=== PATIENT | female | born 1995 | race Caucasian/White ===

== ENCOUNTER 2017-03-13 19:20 | Inpatient (IN) | payer BC ==
[2017-03-13 19:47] VITALS: BMI 30.9
[2017-03-13] MEDS ORDERED: Ondansetron HCl/PF 4 MG/2 ML Vial IVP PRN (20:00)
[2017-03-13] MEDS ORDERED: LR / Pitocin 40 units/1000 ml 1,000 ML IV PRN (20:00)
[2017-03-13] MEDS ORDERED: Lidocaine 1% (PF) 30 ML VIAL SC PRN (20:00)
[2017-03-13] MEDS ORDERED: HYDROcodone/Acetaminophen 5/325 mg Tablet PO PRN ×2 (20:18)
[2017-03-13] MEDS ORDERED: Ibuprofen 800 MG TAB PO PRN (20:18)
[2017-03-13] MEDS ORDERED: Penicillin G Potassium 5 MILL.UNITS in Sodium Chloride 0.9% 100 ML IVPB SCH (20:30)
[2017-03-13 21:06] LABS: Hematocrit 33.1 % (36.0-47.0); Mean Platelet Volume 7.2 fL (7.4-10.4); Red Blood Cell (RBC) Count 4.15 mill/uL (4.20-5.40); White Blood Cell (WBC) Count 12.3 thou/uL (4.8-10.8)
[2017-03-13] MEDS: Dextrose 5%-Lactated Ringers 1,000 ML IV SCH (21:07)
[2017-03-13] MEDS: Lactated Ringer's 1,000 ML IV SCH (21:08)
[2017-03-14] MEDS: Penicillin G 2.5 MILL.units 2.5 MILL.UNITS in Premix Bag 1 BAG IVPB SCH ×5 (01:58→20:36)
[2017-03-14] MEDS: Dextrose 5%-Lactated Ringers 1,000 ML IV SCH ×2 (05:51→20:34)
[2017-03-14] MEDS ORDERED: LR 500 ML/Oxytocin 10 units 500 ML ONE (06:24)
[2017-03-14] MEDS ORDERED: FLU VACC QS2017-18 36 mo. & older 0.5 ML SYRINGE IM ONE (09:00)
[2017-03-14] MEDS: Lactated Ringer's 1,000 ML IV SCH ×3 (09:43→20:35)
[2017-03-14] MEDS ORDERED: Fentanyl 4 mcg/Marc 0.1% Cadd 100 ML ONE (10:49)
[2017-03-14] MEDS ORDERED: Lactated Ringer's 500 ML IV PRN (11:36)
[2017-03-14] MEDS ORDERED: diphenhydrAMINE HCl 50 MG/ML 1 ML VIAL IVP PRN (11:36)
[2017-03-14] MEDS ORDERED: Eucerin (Mineral Oil/Petrolatum,White) 30 gm Jar TOP PRN (11:36)
[2017-03-14] MEDS ORDERED: Acetaminophen 325 MG TAB PO PRN (11:36)
[2017-03-14] MEDS ORDERED: ePHEDrine/0.9% NaCl/PF SYRINGE 50 mg/10 ml SLOW IVP PRN (11:36)
[2017-03-14] MEDS ORDERED: Promethazine HCl 25 MG/ML VIAL IM PRN (11:36)
[2017-03-14] MEDS ORDERED: Ondansetron HCl/PF 4 MG/2 ML Vial IVP PRN (11:36)
[2017-03-14] MEDS ORDERED: Naloxone HCl 0.4 mg/ml Vial IVP PRN ×2 (11:36)
[2017-03-14] MEDS ORDERED: Communication Order-Pharmacy FS SCH (11:45)
[2017-03-14] MEDS ORDERED: Fentanyl 4mcg/Marcaine 0.1% Cassette 100 ML EPIDURAL SCH (11:45)
[2017-03-14] MEDS ORDERED: Preparation H Ointment 28 GM TUBE PR PRN (17:57)
[2017-03-14] MEDS ORDERED: Acetaminophen/Codeine 30-300mg Tablet PO PRN (17:57)
[2017-03-14] MEDS ORDERED: diphenhydrAMINE HCl 25 MG CAP PO PRN (17:57)
[2017-03-14] MEDS ORDERED: Varicella virus, LIVE 0.5 ML VIAL SC ONE (17:57)
[2017-03-14] MEDS ORDERED: Milk Of Magnesia 30 ML UDCUP PO PRN (17:57)
[2017-03-14] MEDS ORDERED: Bisacodyl 10 MG SUPP PR PRN (17:57)
[2017-03-14] MEDS ORDERED: Measles/Mumps/Rubella 10 MCG/0.5 ML VIAL SC ONE (17:57)
[2017-03-14] MEDS ORDERED: Benzocaine/Menthol 20-0.5% 60 ML CAN TOP PRN (17:57)
[2017-03-14] MEDS ORDERED: Adacel (T-DAP) 0.5 ML VIAL IM ONE (17:57)
[2017-03-14] MEDS ORDERED: LR / Pitocin 40 units/1000 ml 1,000 ML IV SCH (18:00)
[2017-03-14] MEDS: Ibuprofen 800 MG TAB PO SCH (18:26)
[2017-03-14] MEDS ORDERED: Bupivacaine/Epinephrine 0.25% 30 ML VIAL ONE (19:34)
[2017-03-14] MEDS: Docusate (Surfak) 240 MG CAP PO SCH (21:43)
[2017-03-15] MEDS: Lactated Ringer's 1,000 ML IV SCH ×3 (05:34→22:16)
[2017-03-15 05:49] LABS: Hematocrit 26.5 % (36.0-47.0); Mean Platelet Volume 7.5 fL (7.4-10.4); Red Blood Cell (RBC) Count 3.27 mill/uL (4.20-5.40); White Blood Cell (WBC) Count 11.2 thou/uL (4.8-10.8)
[2017-03-15] MEDS: Ibuprofen 800 MG TAB PO SCH ×3 (05:49→21:23)
[2017-03-15] MEDS: Prenatal Vitamin 1 TAB PO SCH (08:04)
[2017-03-15] MEDS: Docusate (Surfak) 240 MG CAP PO SCH ×2 (08:04→21:23)
[2017-03-15] MEDS: Ferrous Sulfate 325 MG TAB PO SCH ×2 (08:04→17:06)
[2017-03-15] MEDS: Dextrose 5%-Lactated Ringers 1,000 ML IV SCH ×2 (08:22→22:16)
[2017-03-15] MEDS: Acetaminophen/Codeine 30-300mg Tablet PO PRN (14:43)
[2017-03-15 21:59] VITALS: TEMP 98.2
[2017-03-16] MEDS: Ibuprofen 800 MG TAB PO SCH (05:55)
[2017-03-16 07:51] VITALS: BP 136/72
[2017-03-16] MEDS: Prenatal Vitamin 1 TAB PO SCH (08:38)
[2017-03-16] MEDS: Ferrous Sulfate 325 MG TAB PO SCH (08:38)
[2017-03-16] MEDS: Docusate (Surfak) 240 MG CAP PO SCH (08:38)
[2017-03-16] MEDS: Acetaminophen/Codeine 30-300mg Tablet PO PRN (10:55)
== END 2017-03-16 11:27 | disposition home or self-care (01) | DRG 775 ==
LOC: L&D/OP 19:20 → L&D 20:12 → 3SE 03-14 19:57
PROVIDERS: ADMIT Obstetrics & Gynecology; ATTEND Obstetrics & Gynecology
PROC: 10E0XZZ Delivery of Products of Conception, External Approach (ICD-10-PCS; principal; 2017-03-14)
PROC: 0W8NXZZ Division of Female Perineum, External Approach (ICD-10-PCS; 2017-03-14)
PROC: 3E0P3VZ Introduction of Hormone into Female Reproductive, Percutaneous Approach (ICD-10-PCS; 2017-03-14)
PROC: 4A0HXCZ Measurement of Products of Conception, Cardiac Rate, External Approach (ICD-10-PCS; 2017-03-14)
DX: O99.824 Streptococcus B carrier state complicating childbirth (principal); O76 Abnormality in fetal heart rate and rhythm complicating labor and delivery; O69.81X0 Labor and delivery complicated by cord around neck, without compression, not applicable or unspecified; Z37.0 Single live birth; Z3A.39 39 weeks gestation of pregnancy
CPT/HCPCS: 36415; 85027; 86780; 87340; J0595; J2001; J2540; J7050; J7120

== ENCOUNTER 2018-05-21 11:02 | Outpatient (CLI) | payer BC, OTHER ==
--- NOTE | 2018-05-21 13:17 | ULT ---
GALLBLADDER ULTRASOUND: History: 23-year-old female with history of right upper quadrant pain. FINDINGS: There is minimal course increased liver echogenicity, evidence for some fatty change. Multiple gallst ones are noted in the gallbladder without evidence for gallbladder wall thickening or pericholecystic fluid. Common bile duct is minimally dilated at 0.9 cm. No intrahepatic ductal dilatation. Visualize d pancreas and right kidney are unremarkable. IMPRESSION: Increased liver echogenicity. Cholelithiasis. Common bile duct is 0.9 cm. POS: [facility]
== END 2018-05-21 11:03 | disposition home or self-care (01) ==
LOC: SCSULT 11:02
PROVIDERS: ATTEND Family Medicine
DX: R10.11 Right upper quadrant pain (principal); K80.20 Calculus of gallbladder without cholecystitis without obstruction
CPT/HCPCS: 76705

== ENCOUNTER 2018-05-23 12:03 | Inpatient (IN) | payer BC, OTHER ==
[~2018-05-23 12:03] MED LIST: Dexamethasone 20 MG/5 ML VIAL ONE; Glycopyrrolate 0.2 MG/ML 5 ML SYRINGE ONE; Lidocaine 1% PF 5 ML VIAL ONE; Metoclopramide HCl 10 MG/2 ML VIAL ONE; PROPOFOL 200 MG/20 ML VIAL ONE
[2018-05-23 12:29] LABS: #Basophils 0.1 thou/uL (0.0-0.2); #Eosinphils 0.1 thou/uL (0.0-0.7); #Lymphocytes 1.9 thou/uL (1.20-3.40); #Monocytes 0.8 thou/uL (0.11-0.59); #Neutrophils 4.5 thou/uL (1.40-6.50); %Basophils 0.8 % (0.0-1.0); %Eosinophils 1.2 % (0.0-10.0); %Lymphocytes 26.1 % (21.0-51.0); %Monocytes 10.2 % (0.0-10.0); %Neutrophils 61.8 % (42.0-75.0); Hemoglobin 13.4 g/dL (12.0-16.0); Mean Corpuscular HGB CONC 31.8 g/dL (32.0-36.0); Mean Corpuscular Hemoglobin 25.8 pg (27.0-31.0); Mean Corpuscular Volume 81.1 fL (78.0-98.0); Mean Platelet Volume 7.4 fL (7.4-10.4); Platelet Count 398 thou/uL (130-400); RBC Distribution Width 13.3 % (11.5-14.5); Red Blood Cell (RBC) Count 5.17 mill/uL (4.20-5.40); White Blood Cell (WBC) Count 7.3 thou/uL (4.8-10.8)
[2018-05-23 12:40] LABS: BHCG - Serum Negative (NEGATIVE); Pregs Control Bar Appear? YES (CONTROL BAR)
[2018-05-23 12:41] LABS: Pregs Control Background? CLEAR/WHITE (CLR/WHITE)
[2018-05-23 12:52] LABS: ALT (SGPT) 212 U/L (8-55); AST (SGOT) 85 U/L (5-34); Albumin 4.2 g/dL (3.5-5.0); Alkaline Phosphatase 162 U/L (40-150); Anion Gap 16 mmol/L (10-20); BUN (Urea Nitrogen) 6 mg/dL (7.0-18.7); Bilirubin, Total 3.4 mg/dL (0.2-1.2); Calc. Creatinine Clearance 0 mL/min (70-130); Calcium 9.7 mg/dL (7.8-10.44); Carbon Dioxide 24 mmol/L (22-29); Chloride 102 mmol/L (98-107); Estimated GFR-MDRD Greater than 90; Glucose 98 mg/dL (70-105); Lipase 195 U/L (8-78); Potassium 3.7 mmol/L (3.5-5.1); Protein, Total 8.2 g/dL (6.0-8.3); Sodium 138 mmol/L (136-145)
[2018-05-23] MEDS ORDERED: Ondansetron PF 4 MG/2 ML Vial ONE ×2 (13:30→18:03)
[2018-05-23] MEDS ORDERED: Morphine 4 MG/ML VIAL ONE (13:42)
[2018-05-23 13:52] LABS: Bilirubin Large (Negative); Blood, Urine Negative (Negative); Clarity CLEAR (Clear); Glucose, Urine (Dipstick) Negative (Negative); Leukocyte Small (Negative); Nitrite Negative (Negative); Protein, Urine (Dipstick) Trace mg/dL (Neg-Trace)
[2018-05-23 13:53] LABS: Bacteria/HPF None Seen HPF (None Seen); Hyaline Casts/LPF 0-3 HYALINE CAST LPF (0-3 Hyaline); Pathc Cast-AUWi Flag 0.43 (0-2.49); Yeast-AUWi Flag 21.8 (0-25.0)
--- NOTE | 2018-05-23 14:03 | ULT ---
RIGHT UPPER QUADRANT GALLBLADDER ULTRASOUND: HISTORY: Pain. COMPARISON: Gallbladder ultrasound from two days prior. FINDINGS: The visualized portions of the pancreas are unremarkable. Diffuse increased hepatic echotexture. The liver measures 16.7 cm in length. There is cholelithiasis. No pericholecystic fluid or wall thi ckening. The common bile duct measures 7 mm. The right kidney measures 10.2 x 5.3 x 5.2 cm without mass, hydronephrosis, or abnormal calcification s. IMPRESSION: 1. Diffuse increased hepatic echotexture, suggesting steatosis. 2. Cholelithiasis without cholecystitis. 3. Continued dilatation of the common bile duct, measuring approximately 7 mm. MRCP may be beneficial in this patient, to evaluate for a distal obstructing stone. POS: [facility]
[2018-05-23] MEDS ORDERED: Pantoprazole 40 MG VIAL ONE (14:31)
[2018-05-23] MEDS ORDERED: Morphine 10 MG/ML VIAL ONE (17:27)
--- NOTE | 2018-05-23 17:58 | HP ---
HISTORY OF PRESENT ILLNESS: Nilsa Bojorquez is a 23-year-old female, who presents with one week of abdominal pain, right upper quadrant and nausea. On 05/21/2018, had an ultrasound and this was repeated today on ER presentation. On 05/21/2018, ultrasound revealed a 9 mm common bile duct, multiple gallstones. Today, when she presented for pain, ultrasound of the abdomen was repeated again and gallbladder ultrasound revealed multiple gallstones, continued dilatation of the bile duct. Bilirubin today is 3.4. AST and ALT 85 and 212. Alkaline phosphatase 162. Lipase is slightly elevated at 195. Renal function is normal. White count 7, hemoglobin 13. ALLERGIES: NONE. PAST SURGICAL HISTORY: None. PAST MEDICAL HISTORY: Noncontributory. SOCIAL HISTORY: Tobacco, none. Alcohol, rarely. 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 She has a daughter. She has a significant other she lives with, who is not present. REVIEW OF SYSTEMS: Noncontributory. FAMILY HISTORY: Noncontributory. PHYSICAL EXAMINATION: VITAL SIGNS: Blood pressure 120/70, heart rate 67, respiratory rate 18. HEAD, EARS, EYES, NOSE AND THROAT: Unremarkable. Sclerae nonicteric. SKIN: Nonjaundiced. LUNGS: Clear to auscultation. CARDIAC: Regular rate and rhythm without murmur or gallop. ABDOMEN: Soft, tenderness in the right upper quadrant with guarding. EXTREMITIES: Unremarkable. ASSESSMENT AND PLAN: Cholecystitis, cholelithiasis, choledocholithiasis. We would recommend ERCP. I have consult Dr. Burnette. He had explained the risks of infection, bleeding, reoperation, pancreatitis, and recommend laparoscopic video cholecystectomy. OR crew was not available for an ERCP tonight. The ERCP radiology technician has all gone home. There is nobody here to help with ERCP. Dr. Burnette has scheduled this Saturday morning. For this reason, we will plan laparoscopic cholecystectomy tonight and she will have an ERCP tomorrow. Job ID: [id number]
[2018-05-23 18:27] LABS: ALT (SGPT) 186 U/L (8-55); AST (SGOT) 82 U/L (5-34); Albumin 3.9 g/dL (3.5-5.0); Alkaline Phosphatase 156 U/L (40-150); Bilirubin, Direct 2.8 mg/dL (0.1-0.3); Bilirubin, Total 3.6 mg/dL (0.2-1.2); Protein, Total 7.5 g/dL (6.0-8.3)
[2018-05-23] MEDS ORDERED: Scopolamine 1.5 mg/72 hour Patch ONE (18:53)
[2018-05-23] MEDS ORDERED: Famotidine/PF 20 mg/2ml Vial ONE ×2 (18:54→20:24)
[2018-05-23 18:55] LABS: Lipase 8917 U/L (8-78)
[2018-05-23] MEDS ORDERED: Fentanyl 100 MCG/2 ML VIAL ONE ×3 (19:24→23:04)
[2018-05-23] MEDS ORDERED: Iothalamate Meglumine 60% 50 ML VIAL FS ONE ×2 (19:42→20:41)
[2018-05-23] MEDS ORDERED: Bupivacaine 0.25% HCL 30 ML VIAL ONE (19:42)
[2018-05-23] MEDS ORDERED: Meperidine HCl/PF 25 MG/ML VIAL ONE (20:24)
[2018-05-23] MEDS ORDERED: Bupivacaine HCl 0.5%/Epinephrine 1:200,000/PF 30 ml Vial ONE (20:25)
[2018-05-23] MEDS ORDERED: Indomethacin 50 MG SUPP ONE (20:41)
[2018-05-23] MEDS ORDERED: Morphine 4 MG/ML VIAL SLOW IVP PRN (22:04)
[2018-05-23] MEDS ORDERED: hydrALAZINE 20 MG/ML VIAL SLOW IVP PRN (22:04)
[2018-05-23] MEDS ORDERED: Mag-Al 1200 mg/1200 mg/30 ML UDCUP PO PRN (22:04)
--- NOTE | 2018-05-23 22:09 | RAD ---
OPERATIVE CHOLANGIOGRAM TWO VIEWS: 05/23/18 HISTORY: Intraoperative films. These show filling of a nondilated common bile duct. Very minimal emptying into the duodenum region i s seen. There is reflux into a normal caliber pancreatic duct. Due to limited contrast into the duode num, there is somewhat limited evaluation of the ampullary region. IMPRESSION: No retained stones identified. POS: [facility]
[2018-05-23] MEDS ORDERED: Lactated Ringer's 1,000 ML IV SCH ×2 (22:30→23:30)
--- NOTE | 2018-05-23 22:59 | RAD ---
ERCP: 05/23/18 HISTORY: Evaluation for ductal calculus. A series of three films are presented for interpretation. Two of these films have the scope in place which show filling of the common duct without any definite calculus. Ampullary region was not definit ively visualized on these images. There is one additional image without the scope in place. This show s what appears to be some contrast which is extrinsic to either the bowel or the common duct. I canno t exclude this is indicating some leak. The ampullary region is never optimally visualized on any of these images. IMPRESSION: Single film which shows contrast which could possibly be in the region of Toledo's pouch. I cannot exclude this indicating that there is some leakage of contrast. POS: [facility]
[2018-05-23] MEDS ORDERED: Promethazine HCl 25 MG/ML VIAL IM PRN (23:04)
[2018-05-23] MEDS ORDERED: Promethazine HCl 25 MG/ML VIAL SLOW IVP PRN (23:04)
[2018-05-23] MEDS ORDERED: Ondansetron HCl/PF 4 MG/2 ML Vial IVP PRN (23:04)
[2018-05-23] MEDS ORDERED: Acetaminophen 1,000 MG in Premix Bag 1 BAG IVPB SCH (23:59)
--- NOTE | 2018-05-24 00:22 | CON ---
DATE OF CONSULTATION: 05/23/2018 REASON FOR CONSULT: Possible choledocholithiasis. HISTORY OF PRESENT ILLNESS: Ms. Bojorquez is a 23-year-old female, who has had some intermittent pain in the upper abdomen, right upper quadrant, after eating for a few months now. She saw her primary physician earlier this week and had an ultrasound on Saturday that showed cholelithiasis and appointment was made for to see the general surgeon in the outpatient setting after the holidays, but her symptoms today worsened and her friend told her eyes looked yellow, so she called Dr. Ann's office and they recommended she come to the hospital here. PAST MEDICAL HISTORY: Notable for the fact that she has had a child before. She has had no abdominal surgeries. She was anemic during , but that has resolved. ALLERGIES: NONE KNOWN. MEDICATIONS: None. REVIEW OF SYSTEMS: Negative for weight loss. Her urine has been dark for about 3 or 4 days. She has had no fever, rigors, or chills. She has had no recent weight loss. Her pain was better, but is worse now. She has no shortness of breath or chest pain. PHYSICAL EXAMINATION: VITAL SIGNS: Blood pressure 124/82, pulse 87, respirations 16. She has been afebrile. LUNGS: Clear. HEART: Regular rate and rhythm. No rubs, gallops, or murmurs. ABDOMEN: Soft and nontender with no rebound or guarding. There is mild tenderness in the right upper quadrant. LABORATORY DATA: White count 7.3, hemoglobin 13.4, platelet count 398. Bilirubin 3.4, AST and ALT are 85 and 212, albumin 4.2, lipase 195. Serology not done. Urine is negative. ASSESSMENT: Acute cholecystitis. We will plan for operating room today. Possible choledocholithiasis. Mild elevation of lipase. RECOMMENDATIONS: The patient will need laparoscopic cholecystectomy. There is no symptoms of ascending cholangitis at this point in time. There is a 7 mm common duct. We will repeat LFTs and lipase presently and if patient ERCP tonight, otherwise would proceed tomorrow. Job ID: [id number]
[2018-05-24] MEDS: Morphine 4 MG/ML VIAL SLOW IVP PRN ×3 (00:29→13:11)
[2018-05-24] MEDS: Ketorolac Tromethamine 30 MG/ML VIAL IVP SCH ×3 (00:54→11:53)
[2018-05-24] MEDS: Lactated Ringer's 1,000 ML IV SCH ×4 (00:55→11:54)
[2018-05-24] MEDS: Acetaminophen 1,000 MG in Premix Bag 1 BAG IVPB SCH ×2 (03:09→08:08)
--- NOTE | 2018-05-24 03:13 | OP ---
DATE OF PROCEDURE: 05/23/2018 PREOPERATIVE DIAGNOSES: Chronic cholecystitis, acute cholecystitis, cholelithiasis, choledocholithiasis, and biliary pancreatitis. PROCEDURES PERFORMED: Laparoscopic video cholecystectomy, positive cholangiograms, markedly dilated common hepatic, common bile, left and right hepatic ducts without emptying into the duodenum. ANESTHESIA: General with local of 0.5% Marcaine with epinephrine 30 mL. Fluoroscopy used. DESCRIPTION OF PROCEDURE: The patient was taken to the operating room, where under general anesthesia, abdomen was prepared with ChloraPrep and draped in routine fashion. Local anesthetic of 0.5% Marcaine with epinephrine was infiltrated in the skin and subcutaneous tissue at about each port site. An umbilical incision was made. Pneumoperitoneum to 15 mmHg was obtained with a Veress needle, replaced with a 5 port and the laparoscope inserted. Liver appeared to be normal. Right subxiphoid incision was made and 11 port placed. A right subcostal incision was made, midclavicular, and anterior axillary line, the 5 port was placed. Gallbladder fundus was grasped and reflected cephalad. The infundibulum was grasped and reflected laterally. Cystic artery and cystic duct dissected free. Critical view obtained. A clip was placed on the gallbladder side of the cystic duct with opening made in the cystic duct. Cholangiocatheter was inserted and cholangiogram was obtained using fluoroscopy after glucagon administration. This revealed absence of flow of contrast into the duodenum with a markedly dilated common hepatic, common bile, and left and right hepatic ducts. Cholangiocatheter removed. Cystic duct and cystic artery were doubly clipped. Cystic artery and duct divided. Gallbladder dissected free, obtaining good hemostasis prior to division of the final peritoneal attachments. Gallbladder and contents removed, submitted to Pathology. Good hemostasis was assured. Irrigant and pneumoperitoneum evacuated, and all instruments were removed and the patient transferred to the ERCP suite for ERCP by Dr. Burnette. Job ID: [id number]
--- NOTE | 2018-05-24 03:32 | OP ---
DATE OF PROCEDURE: 05/23/2018 PROCEDURES PERFORMED: Endoscopic retrograde cholangiopancreatography, sphincterotomy, removal of common bile duct stone. PREPROCEDURE DIAGNOSES: 1. Gallstone pancreatitis. 2. Positive intraoperative cholangiogram. 3. Elevated liver enzymes. 4. Ascending cholangitis. POSTPROCEDURE DIAGNOSES: 1. Patulous common bile duct. 2. Cholangiogram reveals filling defect in distal duct consistent with stones. 3. Sphincterotomy was performed. The stent was removed with 15 mm balloon. Duct was then filled with a 12.5 mm balloon. No filling defects noted. Good drainage of contrast. 4. There was no cannulation of the pancreatic duct. ANESTHESIA: General endotracheal anesthesia. ANTIBIOTICS: 1. The patient received Levaquin and Rocephin. 2. The patient received two Indocin suppositories, preprocedure. 3. The patient was getting 200 mL an hour of IV fluid during procedure after 2 L boluses in the ER. RECOMMENDATIONS: 1. Continue IV fluids 250 mL an hour for the next liter and then 200 mL an hour. 2. Repeat labs in the morning. 3. Continue n.p.o. status for pain control. 4. Continue present medications. DESCRIPTION OF PROCEDURE: The patient and family were informed of the risks, benefits, possible complications of ERCP including pancreatitis, bleeding, perforation, bleeding, aspiration, injury to GI tract or potentially worsening of pancreatitis. Informed consent was obtained. The patient was brought to the endoscopy suite from the operating room, where she had had IOC performed. The endoscope was advanced when she was placed in a prone position. A tank car reconditioner film was obtained showing contrast remaining in the common bile duct with no drainage from the IOC. The side-viewing duodenoscope was advanced through the esophagus, stomach, and the second portion of the duodenum. There was quite a bit of food material in the stomach that was suctioned with best of our ability to prevent aspiration on extubation. Anesthesia was informed. The ampulla was brought into view. Free cannulation was obtained of the ampulla and a guidewire was advanced up to confirm position in the common bile duct. At this time, cholangiogram was performed showing some filling defects in the distal duct. A sphincterotomy was performed over the guidewire. A 15 mm balloon was then advanced up into the bile duct and inflated nodular hard yellow stone passed from the bile duct. The 12 mm balloon was then advanced up into the bile duct and the duct was swept three times. There was little bit of debris removed and occlusion cholangiogram was performed showing no further filling defects. After sweeping the duct, good drainage of contrast both endoscopically and radiographically. The scope was removed. The patient remained in sinus rhythm with good blood pressures throughout the procedure. She is extubated in the upright position and brought to recovery room in stable condition. Job ID: [id number]
[2018-05-24 05:41] VITALS: BMI 37.5
[2018-05-24 06:46] LABS: #Monocytes 0.5 thou/uL (0.11-0.59); %Basophils 0.2 % (0.0-1.0); %Eosinophils 0.2 % (0.0-10.0); %Lymphocytes 9.7 % (21.0-51.0); %Monocytes 5.1 % (0.0-10.0); %Neutrophils 84.8 % (42.0-75.0); Hemoglobin 11.3 g/dL (12.0-16.0); Mean Corpuscular Hemoglobin 25.3 pg (27.0-31.0); Mean Corpuscular Volume 81.7 fL (78.0-98.0); Mean Platelet Volume 7.5 fL (7.4-10.4); Platelet Count 307 thou/uL (130-400); RBC Distribution Width 13.4 % (11.5-14.5); Red Blood Cell (RBC) Count 4.47 mill/uL (4.20-5.40); White Blood Cell (WBC) Count 10.6 thou/uL (4.8-10.8)
[2018-05-24 07:08] LABS: ALT (SGPT) 182 U/L (8-55); AST (SGOT) 113 U/L (5-34); Albumin 3.4 g/dL (3.5-5.0); Alkaline Phosphatase 132 U/L (40-150); Anion Gap 13 mmol/L (10-20); BUN (Urea Nitrogen) 5 mg/dL (7.0-18.7); Bilirubin, Total 2.4 mg/dL (0.2-1.2); Calc. Creatinine Clearance 209 mL/min (70-130); Calcium 8.8 mg/dL (7.8-10.44); Carbon Dioxide 21 mmol/L (22-29); Chloride 106 mmol/L (98-107); Estimated GFR-MDRD Greater than 90; Globulin 3.2 g/dL (2.4-3.5); Glucose 128 mg/dL (70-105); Protein, Total 6.6 g/dL (6.0-8.3); Sodium 136 mmol/L (136-145)
[2018-05-24 07:21] LABS: Lipase 4958 U/L (8-78)
[2018-05-24] MEDS ORDERED: Pantoprazole 40 MG VIAL IVP SCH (09:00)
[2018-05-24] MEDS ORDERED: Lactated Ringer's 1,000 ML IV SCH (11:57)
--- NOTE | 2018-05-24 13:00 | PRG ---
DATE OF SERVICE: 05/24/2018 SUBJECTIVE: Ms. Bojorquez states she has different pain today mainly in her trocar sites from her cholecystectomy. Her upper abdominal pain has resolved. She has been tolerating drinking water. She has voided. She has been up walking. OBJECTIVE: VITAL SIGNS: Temperature 97.6, pulse 97, and blood pressure 144/85. LUNGS: Clear. ABDOMEN: Soft. Trocar sites has slight bruising, but there is no evidence of hematoma. They are nontender. There is no erythema. There is no drainage. EXTREMITIES: No edema. LABORATORY DATA: White count 10.6, hemoglobin 11.3, and platelet count 307. Sodium 136, potassium 4, BUN and creatinine are 5 and 0.65, glucose 128. Bilirubin is down to 2.4 from 3.6, AST, ALT are 113 and 182. Lipase is down to 4958 from 8917. ASSESSMENT: 1. Biliary pancreatitis, resolving with no signs of end-organ damage or systemic inflammatory response syndrome. 2. Choledocholithiasis, resolved after endoscopic retrograde cholangiopancreatography and removal of common bile duct stone. 3. Cholecystitis, status post cholecystectomy. RECOMMENDATIONS: Advance diet to full liquids. Repeat lipase in the morning. We would anticipate discharge tomorrow. We will decrease IV fluids. Job ID: [id number]
[2018-05-24] MEDS: Ondansetron PF 4 MG/2 ML Vial IVP PRN ×2 (13:16→19:50)
[2018-05-24] MEDS ORDERED: Ibuprofen 600 MG TAB PO PRN (14:26)
[2018-05-24] MEDS ORDERED: traMADol HCl 50 MG TAB PO PRN ×2 (14:26)
[2018-05-24] MEDS ORDERED: Acetaminophen 500 MG TAB PO PRN (14:26)
--- NOTE | 2018-05-24 16:28 | PRG ---
DATE OF SERVICE: 05/24/2018 SUBJECTIVE: Ms. Bojorquez is doing well today. She is having postoperative pain. She has not had any nausea or vomiting. She has tolerated full liquids that Dr. Burnette has initiated. Last night, she had ERCP with stone extraction. OBJECTIVE: VITAL SIGNS: Temperature 97.5, pulse 101, and blood pressure 138/90. LUNGS: Clear to auscultation. CARDIAC: Regular rate and rhythm without murmur or gallop. ABDOMEN: Soft. Mild tenderness as expected postoperatively. She does not have tenderness consistent with pancreatitis. LABORATORY DATA: This morning, her white count is 10 and hemoglobin 11.3. Sodium 136, potassium 4.0, BUN and creatinine 5 and 0.65. Bilirubin is decreased to 2.4 from 3.6 yesterday and her lipase is slightly improved to 4958, down from 8917 yesterday. ASSESSMENT AND PLAN: Resolving pancreatitis. Expect her to be able to be discharged home today. We will decrease her IV fluids and advance her diet as tolerated. Job ID: [id number]
[2018-05-24 20:17] VITALS: BP 132/86; TEMP 98.4
[2018-05-24] MEDS ORDERED: Enoxaparin Sodium 40 MG/0.4 ML SYRINGE SC SCH (21:00)
--- NOTE | 2018-05-25 02:54 | DIS ---
DATE OF ADMISSION: 05/23/2018 DATE OF DISCHARGE: 05/24/2018 DISCHARGE DIAGNOSES: 1. Biliary pancreatitis. 2. Choledocholithiasis. 3. Cholelithiasis. PROCEDURES: Ultrasound of the gallbladder, laparoscopic cholecystectomy, positive cholangiograms, endoscopic retrograde cholangiopancreatography, sphincterotomy, and stone extraction. HISTORY: A 23-year-old female with biliary symptoms, presented to the emergency room with dilated bile duct and now an abnormal liver function test. Initially, the lipase was 100. Plan was for laparoscopic cholecystectomy and cholangiograms as her bile duct was dilated. As her liver function tests were abnormal, initial plan was for ERCP followed by laparoscopic cholecystectomy. OR crew for ERCP was not available, thus decision was made to proceed with laparoscopic cholecystectomy, cholangiograms as her lipase had increased. The patient underwent the above procedure and cholangiograms were positive for dilated bile duct without emptying the duodenum despite glucagon administration intraoperatively and she was taken to endoscopy suite on the same anesthesia for ERCP, sphincterotomy, and stone extraction. Postoperatively, she convalesced, tolerated diet. She was sent home with [id number] Tylenol, ibuprofen, and tramadol p.r.n. pain. FOLLOWUP: Follow up in my office in 2 to 3 weeks. DIET: As tolerated. ACTIVITY: As tolerated. Job ID: [id number]
[2018-05-25] MEDS ORDERED: Polyethylene Glycol 3350 17 GM Packet PO SCH (09:00)
== END 2018-05-24 20:17 | disposition home or self-care (01) | DRG 417 ==
LOC: ERS 12:03 → SURG B 18:17 → ERS 18:17 → SDC/OP 19:11 → SURG B 22:04
PROVIDERS: ADMIT Specialist; ATTEND Specialist
PROC: 0FT44ZZ Resection of Gallbladder, Percutaneous Endoscopic Approach (ICD-10-PCS; principal; 2018-05-23)
PROC: BF101ZZ Fluoroscopy of Bile Ducts using Low Osmolar Contrast (ICD-10-PCS; 2018-05-23)
PROC: 0FC98ZZ Extirpation of Matter from Common Bile Duct, Via Natural or Artificial Opening Endoscopic (ICD-10-PCS; 2018-05-24)
DX: K85.10 Biliary acute pancreatitis without necrosis or infection (principal); K80.67 Calculus of gallbladder and bile duct with acute and chronic cholecystitis with obstruction; R03.0 Elevated blood-pressure reading, without diagnosis of hypertension
CPT/HCPCS: 36415; 47532; 74330; 76705; 80053; 81003; 81015; 83690; 84703; 85025; 93005; 96361; 96365; 96375; 96376; C9113; J0131; J0670; J1610; J1650; J1885; J1956; J2175; J2270; J2405; J3010; Q9961; S0020; S0028

== ENCOUNTER 2020-07-25 10:23 | Day surgery (SDC) | payer BC ==
[2020-07-25] MEDS ORDERED: Glycopyrrolate 0.2 MG/ML 5 ML SYRINGE ONE (10:41)
[2020-07-25] MEDS ORDERED: Succinylcholine 200 MG/10 ml SYRINGE FS ONE (10:41)
[2020-07-25] MEDS ORDERED: Metoclopramide HCl 10 MG/2 ML VIAL ONE (10:41)
[2020-07-25] MEDS ORDERED: PROPOFOL 200 MG/20 ML VIAL ONE (10:41)
[2020-07-25] MEDS ORDERED: Lidocaine 1% PF 5 ML VIAL ONE (10:41)
[2020-07-25] MEDS ORDERED: Ketorolac Tromethamine 30 MG/ML VIAL ONE (10:41)
[2020-07-25] MEDS ORDERED: Rocuronium Bromide 10 MG/ML (10ML VIAL) ONE (10:41)
[2020-07-25] MEDS ORDERED: Dexamethasone 20 MG/5 ML VIAL ONE (10:41)
[2020-07-25 10:52] LABS: #Basophils 0.1 thou/uL (0.0-0.2); #Lymphocytes 0.9 thou/uL (1.20-3.40); #Neutrophils 9.9 thou/uL (1.40-6.50); %Basophils 0.4 % (0.0-1.0); %Eosinophils 0.2 % (0.0-10.0); %Lymphocytes 7.6 % (21.0-51.0); %Neutrophils 83.6 % (42.0-75.0); Hemoglobin 14.1 g/dL (12.0-16.0); Mean Corpuscular Hemoglobin 28.6 pg (27.0-31.0); Mean Corpuscular Volume 86.7 fL (78.0-98.0); Mean Platelet Volume 7.4 fL (7.4-10.4); Platelet Count 296 thou/uL (130-400); RBC Distribution Width 11.3 % (11.5-14.5); Red Blood Cell (RBC) Count 4.94 mill/uL (4.20-5.40); White Blood Cell (WBC) Count 11.9 thou/uL (4.8-10.8)
[2020-07-25] MEDS ORDERED: Ondansetron PF 4 MG/2 ML Vial ONE ×2 (10:57→13:30)
[2020-07-25] MEDS ORDERED: Acetaminophen 500 MG TAB ONE (10:57)
[2020-07-25 11:05] LABS: BHCG - Serum Negative (NEGATIVE); Pregs Control Background? CLEAR/WHITE (CLR/WHITE); Pregs Control Bar Appear? YES (CONTROL BAR)
[2020-07-25 11:12] LABS: INR-International Normal Ratio 1.1; Prothrombin Time 14.2 sec (12.0-14.7)
[2020-07-25 11:13] LABS: PTT 37.2 sec (22.9-36.1)
[2020-07-25] MEDS ORDERED: Iopamidol-370 76% 500 ML 1 ML ONE (11:15)
[2020-07-25 11:22] LABS: Albumin 4.3 g/dL (3.5-5.0)
[2020-07-25] MEDS ORDERED: Morphine 4 MG/ML VIAL ONE ×2 (11:22→13:30)
[2020-07-25] MEDS ORDERED: Piperacillin/Tazobactam 3.375 GM VIAL ONE (11:22)
[2020-07-25 11:23] LABS: Chloride 104 mmol/L (98-107); Sodium 135 mmol/L (136-145)
[2020-07-25 11:24] LABS: Calcium 8.8 mg/dL (7.8-10.44); Glucose 103 mg/dL (70-105)
[2020-07-25 11:26] LABS: Anion Gap 17 mmol/L (10-20); Bilirubin, Total 0.6 mg/dL (0.2-1.2); Carbon Dioxide 18 mmol/L (22-29)
[2020-07-25 11:27] LABS: Alkaline Phosphatase 74 U/L (40-110)
[2020-07-25 11:28] LABS: Calc. Creatinine Clearance 0 mL/min (70-130)
[2020-07-25 11:29] LABS: AST (SGOT) 18 U/L (5-34); BUN (Urea Nitrogen) 8 mg/dL (7.0-18.7)
[2020-07-25 11:30] LABS: ALT (SGPT) 15 U/L (8-55); Lipase 15 U/L (8-78)
[2020-07-25 11:37] LABS: Globulin 3.8 g/dL (2.4-3.5)
--- NOTE | 2020-07-25 12:31 | CT ---
EXAM: CT ABDOMEN AND PELVIS HISTORY: Right lower quadrant pain. Evaluate for appendicitis. Nausea vomiting diarrhea. COMPARISON: None. Procedure: Multiple contiguous axial images were obtained and a CT of the abdomen and pelvis with IV contrast. C oronal reformats were performed. FINDINGS: Lower Chest: within normal limits. Vessels: Normal caliber aorta Heart: Normal heart size Abdomen: Portal vein:Patent Gallbladder: Surgically absent Liver: within normal limits. Pancreas: within normal limits. Spleen: within normal limits. Adrenals: within normal limits. Kidneys: Symmetric enhancement. No obstructive uropathy. Peritoneum: No ascites or free air, no fluid collection. Bowel: Limited evaluation due to lack of oral contrast administration. Unremarkable gastric mucosa. M ultiple normal caliber small bowel loops. Normal ileocecal junction. Unremarkable colon. There is a retrocecal appendix with mild periappendiceal fat stranding suggesting early appendicitis. Mesentery and Retroperitoneum: There are enlarged lymph nodes adjacent to the aforementioned inflamed appendix. Additional scattered mesenteric lymph nodes are noted. Correlate for mesenteric lymphadenitis. [employer] lymph node in the right lower quadrant measures 1.3 x 0.7 cm Abdominal Wall: within normal limits. Pelvis: Reproductive Organs: Reproductive organs are unremarkable. Intrauterine device is noted. Injury devic e has rotated by 180 degrees duct at the horizontal portion is now at the level lower uterine segment. Pelvis: No mass, lymphadenopathy, free air or free fluid. Bladder: within normal limits. Bones: within normal limits. IMPRESSION: 1. Early appendicitis. 2. Abnormal positioning of the intrauterine device 3. Enlarged mesenteric lymph nodes which may in part be reactive secondary to inflammation of the katlyn endix as well as due to mesenteric lymphadenitis. Results study discussed with Dr. Sam 07/25/2020 at 12:25 PM Code CR
[2020-07-25 12:33] LABS: Bilirubin Negative (Negative); Blood, Urine Trace (Negative); Clarity Turbid (Clear); Glucose, Urine (Dipstick) Normal (Negative); Ketone, Urine Negative (Negative); Leukocyte Negative Leu/uL (Negative); Nitrite Negative (Negative); Protein, Urine (Dipstick) 20 mg/dL (Neg-Trace); RBC/HPF 0-3 HPF (0-3); Specific Gravity, Urine 1.029 (1.002-1.036); Urobilinogen Normal mg/dL (Less than 2); WBC/HPF 0-3 HPF (0-3); pH, Urine 5.5 (5.0-9.0)
[2020-07-25 12:37] LABS: Bacteria/HPF 1+ HPF (None Seen)
--- NOTE | 2020-07-25 13:25 | HP ---
HISTORY OF PRESENT ILLNESS: Ms. Bojorquez is a 25-year-old woman presented to the emergency department with 24 hour history of what started as a periumbilical abdominal pain, which has settled in the right lower quadrant since. Pain is described as sharp without any radiation. Pain is associated with multiple episodes of nonbilious emesis and diarrhea, which started last night. She admits to fever but no chills. PAST MEDICAL HISTORY: She denies any previous medical problems. PAST SURGICAL HISTORY: Pertinent for laparoscopic cholecystectomy with ERCP as well as IUD placement. 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 She lives at home with her fiance and daughter. She denies any cigarette smoking, ethanol, or illicit drug abuse. FAMILY HISTORY: Notable for mother with diabetes mellitus and her father with heart disease. She denies any family history of essential hypertension or cancer. CURRENT MEDICATIONS: None. ALLERGIES: THE PATIENT DENIES ANY KNOWN DRUG ALLERGIES. REVIEW OF SYSTEMS: Ten-point review of systems essentially unremarkable except as stated in past medical history and chief complaint. PHYSICAL EXAMINATION: GENERAL: This reveals a 25-year-old normally developed woman, who is otherwise coherent, interactive, and appears stated age. The patient is alert and oriented x3. Appears to be in no acute distress at time of my evaluation. VITAL SIGNS: Vital signs includes blood pressure 128/77, pulse 105, respiratory rate 20, temperature is 100.2 degrees Fahrenheit, oxygen saturation 100% on room air. HEENT: Pupils are equal, round, reactive to light and accommodation. HEART: Reveals regular rate with mild sinus tachycardia. No murmurs or gallops auscultated. LUNGS: Clear to auscultation bilaterally. Her breathing is regular and nonlabored. ABDOMEN: Soft and nondistended. She has right lower quadrant tenderness at McBurney's. She has a positive Rovsing sign. Liver and spleen otherwise nonpalpable below costal margins. NEUROLOGIC: Reveals no focal deficits present. LABORATORY FINDINGS: Today include a CBC with 11,900 white blood cells. Hemoglobin and hematocrit 14.1 and 42.8 respectively. Platelet count is 296,000. Metabolic profile: Sodium 135, potassium 4.0, chloride is 104, bicarb is 18, BUN 8, creatinine 0.72, glucose 103. Lactic acid 2.3. AST and ALT are normal at 18 and 15 respectively. Serum lipase is normal at 15. Serum test is negative. I have personally reviewed the CT scan of the abdomen and pelvis, which revealed a dilated appendix with periappendiceal fat stranding. No pneumoperitoneum or significant free fluid is noted. IMPRESSION: Acute appendicitis with localized peritonitis. RECOMMENDATIONS AND PLAN: 1. Laparoscopic appendectomy. 2. Above findings and plan discussed with the patient who indicates understanding, information provided. 3. I have informed the patient of the risks and benefits of the proposed surgery to include but not limited to bleeding, infection, injury to bowel or surrounding structures. She indicates understanding of this information and has granted consent for this admission and surgical intervention. Job ID: [id number]
[2020-07-25 13:59] LABS: SARS-CoV-2 NAA Rapid Test Not Detected (NotDetected)
[2020-07-25 14:17] LABS: Lactic Acid 0.8 mmol/L (0.5-2.2)
[2020-07-25] MEDS ORDERED: EPINEPHrine 1 MG/ML AMP ONE (15:08)
[2020-07-25] MEDS ORDERED: Bupivacaine 0.25% HCL 30 ML VIAL ONE (15:08)
[2020-07-25] MEDS ORDERED: Fentanyl 100 MCG/2 ML VIAL ONE (18:58)
--- NOTE | 2020-07-25 19:59 | OP ---
DATE OF PROCEDURE: 07/25/2020 PREOPERATIVE DIAGNOSIS: Acute appendicitis. POSTOPERATIVE DIAGNOSIS: Acute appendicitis. PROCEDURE PERFORMED: Laparoscopic appendectomy. ANESTHESIA: General endotracheal. ESTIMATED BLOOD LOSS: 5 mL. FLUIDS GIVEN: 1100 mL crystalloids. SPONGE AND INSTRUMENT COUNT: Certified as correct x2. COMPLICATIONS: None apparent at the time of operation. INDICATIONS FOR OPERATION: This is a 25-year-old woman, who presented with 24-hour history of abdominal pain. Clinical and radiographic examinations were consistent with acute appendicitis, for which the patient was brought to the operating room for laparoscopic appendectomy. Findings are consistent with dilated, but nonperforated retrocecal appendix with periappendiceal inflammation. DESCRIPTION OF OPERATION: Informed consent was obtained from the patient, who was brought to the operating room and placed in supine position. Following general anesthesia, abdomen was sterilely prepped and draped in usual fashion. The skin below the umbilicus was infiltrated with 0.25% Marcaine with epinephrine. A small curvilinear infraumbilical incision was made using 11 scalpel. Umbilical stalk was grasped with Mindi and elevated. Veress needle was inserted through the incision and placed in the peritoneal cavity, through which the abdomen was insufflated with 3 L of CO2 gas. Intraabdominal pressure noted at 2 mmHg. Following abdominal insufflation, Veress needle was removed and a 5 mm trocar introduced using a Visiport under laparoscopy. Laparoscopy confirmed proper placement of the port. No injuries to underlying structures. In addition, laparoscopy reveals the right lower quadrant partially obscured by omental adhesions. Under direct laparoscopy, two 5 mm suprapubic and left lower quadrant ports were placed after the overlying skin infiltrated with 0.25% Marcaine with epinephrine. Appropriate incision was made. The patient was placed in a Trendelenburg position, rotated to her left. I introduced Prestige grasper through the left lower quadrant port site, using this, to bluntly take down omental adhesions to reveal retrocecal appendix. This was welded to the right lateral gutter. This was then dissected free from surrounding structures using LigaSure device. Care taken to avoid injuries to adherent bowel. I then grasped the appendix with Endo Renetta forceps, which was elevated. Mesoappendix was sterilely divided down to the base using LigaSure device with good hemostasis. Appendix itself was divided at the appendicocecal junction between endo-loops. This was delivered off the abdominal cavity using EndoCatch. Operative site was inspected for good hemostasis. Finding, no other pathology. Laparoscopy was terminated. The abdomen was desufflated. All ports and instruments were removed and accounted for. Skin incisions were closed using 4-0 Monocryl suture in subcuticular fashion. Dermabond was applied over incisional closure. The patient tolerated this operation without any apparent complication and was returned to the recovery room in satisfactory condition. Job ID: [id number]
== END 2020-07-25 20:04 | disposition home or self-care (01) ==
LOC: ERS 10:23 → SDC 16:00
PROVIDERS: ATTEND Surgery
PROC: 0DTJ4ZZ Resection of Appendix, Percutaneous Endoscopic Approach (ICD-10-PCS; principal; 2020-07-25)
DX: K35.80 Unspecified acute appendicitis (principal); Z20.822 Contact with and (suspected) exposure to COVID-19
CPT/HCPCS: 0240U; 36415; 74177; 80053; 81003; 81015; 83605; 83690; 84703; 85025; 85610; 85730; 87040; 88304; 94760; 96365; 96366; 96375; 96376; J0171; J1100; J1885; J2270; J2405; J2543; J2704; J2765; J3010; Q9967; S0020

== ENCOUNTER 2021-02-15 18:30 | Emergency (ER) | payer BC ==
[2021-02-15] MEDS ORDERED: Ketorolac Tromethamine 30 MG/ML VIAL ONE (20:00)
[2021-02-15] MEDS ORDERED: Metoclopramide HCl 10 MG/2 ML VIAL ONE (20:00)
[2021-02-15 20:30] LABS: #Basophils 0.1 thou/uL (0.0-0.2); #Eosinphils 0.1 thou/uL (0.0-0.7); #Lymphocytes 4.1 thou/uL (1.20-3.40); #Monocytes 0.9 thou/uL (0.11-0.59); #Neutrophils 7.1 thou/uL (1.40-6.50); %Basophils 0.7 % (0.0-1.0); %Eosinophils 1.1 % (0.0-10.0); %Lymphocytes 33.2 % (21.0-51.0); %Monocytes 7.1 % (0.0-10.0); %Neutrophils 57.9 % (42.0-75.0); Hemoglobin 13.7 g/dL (12.0-16.0); Mean Corpuscular HGB CONC 33.6 g/dL (32.0-36.0); Mean Corpuscular Hemoglobin 28.8 pg (27.0-31.0); Mean Corpuscular Volume 85.7 fL (78.0-98.0); Mean Platelet Volume 7.6 fL (7.4-10.4); Platelet Count 373 thou/uL (130-400); RBC Distribution Width 11.2 % (11.5-14.5); Red Blood Cell (RBC) Count 4.76 mill/uL (4.20-5.40); White Blood Cell (WBC) Count 12.2 thou/uL (4.8-10.8)
[2021-02-15 20:54] LABS: ALT (SGPT) 18 U/L (8-55); AST (SGOT) 20 U/L (5-34); Albumin 4.4 g/dL (3.5-5.0); Alkaline Phosphatase 73 U/L (40-110); Anion Gap 16 mmol/L (10-20); BUN (Urea Nitrogen) 12 mg/dL (7.0-18.7); Bilirubin, Total 0.4 mg/dL (0.2-1.2); Calc. Creatinine Clearance 0 mL/min (70-130); Calcium 9.8 mg/dL (7.8-10.44); Carbon Dioxide 24 mmol/L (22-29); Chloride 104 mmol/L (98-107); Globulin 3.5 g/dL (2.4-3.5); Glucose 80 mg/dL (70-105); Potassium 4.5 mmol/L (3.5-5.1); Protein, Total 7.9 g/dL (6.0-8.3); Sodium 139 mmol/L (136-145)
== END 2021-02-15 21:50 | disposition home or self-care (01) ==
LOC: ERS 18:30
DX: G43.109 Migraine with aura, not intractable, without status migrainosus (principal)
CPT/HCPCS: 80053; 85025; 93005; 96365; 96366; 96375; J1885; J2765

== ENCOUNTER 2021-02-17 19:36 | Emergency (ER) | payer BC ==
[2021-02-17 21:07] LABS: #Basophils 0.1 thou/uL (0.0-0.2); #Eosinphils 0.2 thou/uL (0.0-0.7); #Lymphocytes 3.9 thou/uL (1.20-3.40); #Monocytes 0.7 thou/uL (0.11-0.59); #Neutrophils 6.3 thou/uL (1.40-6.50); %Basophils 0.6 % (0.0-1.0); %Eosinophils 1.5 % (0.0-10.0); %Lymphocytes 34.8 % (21.0-51.0); %Monocytes 6.6 % (0.0-10.0); %Neutrophils 56.5 % (42.0-75.0); Hemoglobin 14.5 g/dL (12.0-16.0); Mean Corpuscular HGB CONC 33.5 g/dL (32.0-36.0); Mean Corpuscular Hemoglobin 28.9 pg (27.0-31.0); Mean Corpuscular Volume 86.3 fL (78.0-98.0); Mean Platelet Volume 7.3 fL (7.4-10.4); Platelet Count 387 thou/uL (130-400); RBC Distribution Width 11.4 % (11.5-14.5); Red Blood Cell (RBC) Count 5.03 mill/uL (4.20-5.40); White Blood Cell (WBC) Count 11.2 thou/uL (4.8-10.8)
[2021-02-17 22:47] LABS: Bilirubin, Total 0.3 mg/dL (0.2-1.2); Calc. Creatinine Clearance 0 mL/min (70-130); Calcium 10.4 mg/dL (7.8-10.44); Glucose 99 mg/dL (70-105)
[2021-02-17 22:50] LABS: Albumin 4.5 g/dL (3.5-5.0); Chloride 105 mmol/L (98-107)
[2021-02-17 22:51] LABS: Alkaline Phosphatase 75 U/L (40-110); Anion Gap 15 mmol/L (10-20); Carbon Dioxide 24 mmol/L (22-29); Globulin 3.3 g/dL (2.4-3.5); Potassium 4.2 mmol/L (3.5-5.1); Protein, Total 7.8 g/dL (6.0-8.3); Sodium 140 mmol/L (136-145)
[2021-02-17 22:52] LABS: ALT (SGPT) 19 U/L (8-55); AST (SGOT) 17 U/L (5-34); BUN (Urea Nitrogen) 15 mg/dL (7.0-18.7); CK (CPK) 95 U/L (29-168)
[2021-02-18 10:08] LABS: Clarity Clear (Clear); Leukocyte Negative Leu/uL (Negative); Nitrite Negative (Negative); Pregnancy Test - Urine (BHCG) Negative (Negative); Pregu Control Background? CLEAR/WHITE (CLR/WHITE); Pregu Control Bar Appear? YES (CONTROL BAR); Specific Gravity 1.024 (1.002-1.036); Specific Gravity, Urine 1.024 (1.002-1.036)
[2021-02-18 10:09] LABS: Bilirubin Negative (Negative); Blood, Urine Trace (Negative); Glucose, Urine (Dipstick) Negative (Negative); Ketone, Urine Negative (Negative); Protein, Urine (Dipstick) Negative (Neg-Trace); RBC/HPF 0-3 HPF (0-3); Squamous Epithelial 0-3 HPF (0-3); Urobilinogen Normal mg/dL (Less than 2); WBC/HPF 0-3 HPF (0-3)
== END 2021-02-18 02:34 | disposition home or self-care (01) ==
LOC: ERS 19:36
DX: I10 Essential (primary) hypertension (principal)
CPT/HCPCS: 36415; 71045; 80053; 80061; 81001; 81025; 82550; 84443; 84484; 85025; 93005

== ENCOUNTER 2022-06-16 21:05 | Emergency (ER) | payer BC ==
[2022-06-16] MEDS ORDERED: Ondansetron PF 4 MG/2 ML Vial ONE (21:39)
[2022-06-16] MEDS ORDERED: Morphine 4 MG/ML VIAL ONE ×2 (21:39→23:38)
[2022-06-16 21:46] LABS: #Eosinphils 0.1 thou/uL (0.0-0.7); #Lymphocytes 3.5 thou/uL (1.20-3.40); #Monocytes 0.7 thou/uL (0.11-0.59); #Neutrophils 6.1 thou/uL (1.40-6.50); %Basophils 0.4 % (0.0-1.0); %Eosinophils 0.9 % (0.0-10.0); %Lymphocytes 33.6 % (21.0-51.0); %Neutrophils 58.1 % (42.0-75.0); Hemoglobin 13.8 g/dL (12.0-16.0); Mean Corpuscular HGB CONC 34.1 g/dL (32.0-36.0); Mean Corpuscular Hemoglobin 29.6 pg (27.0-31.0); Mean Corpuscular Volume 86.6 fl (78.0-98.0); Mean Platelet Volume 7.2 fL (7.4-10.4); Platelet Count 317 10x3/uL (130-400); Red Blood Cell (RBC) Count 4.68 mill/uL (4.20-5.40); White Blood Cell (WBC) Count 10.5 10x3/uL (4.8-10.8)
[2022-06-16 21:58] LABS: BHCG - Serum Negative (NEGATIVE); Pregs Control Background? CLEAR/WHITE (CLR/WHITE); Pregs Control Bar Appear? YES (CONTROL BAR)
[2022-06-16 22:09] LABS: ALT (SGPT) 13 U/L (8-55); AST (SGOT) 13 U/L (5-34); Albumin 4.4 g/dL (3.5-5.0); Alkaline Phosphatase 53 U/L (40-110); Anion Gap 14 mmol/L (10-20); BUN (Urea Nitrogen) 11 mg/dL (7.0-18.7); Bilirubin, Total 0.5 mg/dL (0.2-1.2); Calc. Creatinine Clearance 0 mL/min (70-130); Calcium 9.1 mg/dL (7.8-10.44); Carbon Dioxide 24 mmol/L (22-29); Chloride 104 mmol/L (98-107); Estimated GFR 104; Globulin 3.3 g/dL (2.4-3.5); Glucose 89 mg/dL (70-105); Potassium 3.6 mmol/L (3.5-5.1); Protein, Total 7.7 g/dL (6.0-8.3); Sodium 138 mmol/L (136-145)
[2022-06-16] MEDS ORDERED: Acetaminophen 500 MG TAB ONE (22:49)
[2022-06-16 23:27] LABS: Bilirubin Negative (Negative); Blood, Urine Negative (Negative); Clarity Clear (Clear); Glucose, Urine (Dipstick) Normal (Negative); Ketone, Urine Negative (Negative); Leukocyte 75 Leu/uL (Negative); Nitrite Negative (Negative); Protein, Urine (Dipstick) Negative (Neg-Trace); RBC/HPF 0-3 HPF (0-3); Urobilinogen Normal mg/dL (Less than 2)
[2022-06-16 23:28] LABS: Bacteria/HPF 1+ HPF (None Seen)
== END 2022-06-17 00:08 | disposition home or self-care (01) ==
LOC: ERS 21:05
DX: N39.0 Urinary tract infection, site not specified (principal); M54.9 Dorsalgia, unspecified; I10 Essential (primary) hypertension
CPT/HCPCS: 74176; 80053; 81003; 81015; 84703; 85025; 96374; 96375; 96376; J2270; J2405

== ENCOUNTER 2022-12-11 17:15 | Emergency (ER) | payer BC | END 2022-12-11 19:04 | disposition home or self-care (01) | LOC: ERS 17:15 | DX: M25.572 Pain in left ankle and joints of left foot (principal) | CPT/HCPCS: 99283 ==

== ENCOUNTER 2023-07-29 16:25 | Emergency (ER) | payer BC, OTHER ==
[2023-07-29 17:12] LABS: Bacteria/HPF None Seen HPF (None Seen); Bilirubin Negative (Negative); Blood, Urine 2+ (Negative); CAUTI Indications for Culture Pelvic or flank pain; Clarity Clear (Clear); Glucose, Urine (Dipstick) Normal (Negative); Ketone, Urine Negative (Negative); Leukocyte 75 Leu/uL (Negative); Nitrite Negative (Negative); Protein, Urine (Dipstick) 10 mg/dL (Neg-Trace); Urobilinogen Normal mg/dL (Less than 2); WBC/HPF 0-3 HPF (0-3)
[2023-07-29 17:15] LABS: Urine Culture Reflex No No
[2023-07-29 17:38] LABS: #Eosinphils 0.2 thou/uL (0.0-0.7); #Monocytes 0.7 thou/uL (0.11-0.59); #Neutrophils 4.3 thou/uL (1.40-6.50); %Basophils 0.5 % (0.0-1.0); %Eosinophils 1.9 % (0.0-10.0); %Lymphocytes 37.8 % (21.0-51.0); %Monocytes 7.9 % (0.0-10.0); %Neutrophils 51.7 % (42.0-75.0); Hematocrit 41.4 % (36.0-47.0); Hemoglobin 13.7 g/dL (12.0-16.0); Mean Corpuscular HGB CONC 33.1 g/dL (32.0-36.0); Mean Corpuscular Hemoglobin 28.5 pg (27.0-31.0); Mean Corpuscular Volume 86.1 fl (78.0-98.0); Mean Platelet Volume 9.8 fL (7.4-10.4); Platelet Count 360 10x3/uL (130-400); RBC Distribution Width 12.1 % (11.5-14.5); Red Blood Cell (RBC) Count 4.81 mill/uL (4.20-5.40); White Blood Cell (WBC) Count 8.4 10x3/uL (4.8-10.8)
[2023-07-29 18:04] LABS: ALT (SGPT) 16 U/L (8-55); AST (SGOT) 17 U/L (5-34); Albumin 4.3 g/dL (3.5-5.0); Alkaline Phosphatase 69 U/L (40-110); Anion Gap 14 mmol/L (10-20); BUN (Urea Nitrogen) 12 mg/dL (7.0-18.7); Bilirubin, Total 0.5 mg/dL (0.2-1.2); Calc. Creatinine Clearance 0 mL/min (70-130); Calcium 9.3 mg/dL (7.8-10.44); Carbon Dioxide 24 mmol/L (22-29); Chloride 105 mmol/L (98-107); Estimated GFR 99; Glucose 85 mg/dL (70-105); Potassium 4.4 mmol/L (3.5-5.1); Protein, Total 7.3 g/dL (6.0-8.3); Sodium 139 mmol/L (136-145)
[2023-07-29] MEDS ORDERED: Morphine 4 MG/ML VIAL ONE (18:29)
[2023-07-29] MEDS ORDERED: Ketorolac Tromethamine 30 MG (1 mL) VIAL ONE (18:29)
[2023-07-29] MEDS ORDERED: Ondansetron PF 4 MG/2 ML Vial ONE (18:30)
[2023-07-29 18:37] LABS: BHCG - Serum Negative (NEGATIVE); Pregs Control Background? CLEAR/WHITE (CLR/WHITE); Pregs Control Bar Appear? YES (CONTROL BAR)
== END 2023-07-29 20:09 | disposition home or self-care (01) ==
LOC: ERS 16:25
DX: R10.9 Unspecified abdominal pain (principal); R31.9 Hematuria, unspecified; Z55.6 Problems related to health literacy; Z90.89 Acquired absence of other organs; Z90.49 Acquired absence of other specified parts of digestive tract
CPT/HCPCS: 36415; 74176; 80053; 81001; 84703; 85025; 93005; 96361; 96374; 96375; J1885; J2270; J2405